=== PATIENT | female | born 1990 | race Caucasian/White ===

== ENCOUNTER 2018-01-27 15:21 | Observation (INO) ==
--- NOTE | 2018-01-27 15:39 | Emergency Department Note ---
Disposition Clinical Impression: Atypical chest pain, Elevated troponin, Pulmonary nodule, Hepatomegaly, Vascular disorder of pelvis Disposition: Admitted As Inpatient Condition: Good Time of Disposition: 19:26 General Adult HPI - General Chief complaint: ED Chest Pain Stated complaint: L-sided chest pain Time Seen by Provider: 01/27/18 15:34 Source: patient Limitations: no limitations Nursing Notes Reviewed: Yes Vital Signs Reviewed: Yes - History of Present Illness HPI Narrative: Female patient presents emergency ointment complaining of left-sided chest pain that began around 1:00 today. She states that she was at the gym exercising earlier today after she got home she started having some left-sided chest pain. She reports a history of irritable bowel syndrome. However she states her father has this as well. She does report 3 episodes of loose stools today that were nonbloody. She also reports that she had one episode of nausea that she somewhat contributes to the pain in the left side of her chest. The pain started and then she had an episode of emesis. She did describe that is nonbloody nonbilious. Patient denies any shortness of breath associated with the left sided chest pain or she does report the pain goes through her chest. She does take ibuprofen occasionally for which she believes this tendon pain in her leg. Patient is a avid runner and runs ultra marathons. She does report that she has had some calf pain recently but is attributed this to a tendinopathy. She is currently on control and states that she there is no issue be . She reports the pain is a left upper quadrant as well as left-sided chest pain. She denies any trauma. She denies any recent aches or pains to this area consistent with a muscle strain. Pain Scale: 6 - Related Data Allergies Allergy/AdvReac Type Severity Reaction Status Date / Time shellfish derived Allergy Rash Verified 01/27/18 15:34 All systems ED: reviewed and negative except as stated. Review of Systems: As Per HPI Constitutional: Denies: fever ENT ED: Reports: congestion (She reports constant congestion.) Cardiovascular: Reports: chest pain (Left chest wall radiates to her back.) Respiratory: Denies: cough, dyspnea, sputum production Gastrointestinal: Reports: abdominal pain (Left upper quadrant), nausea, vomiting, diarrhea Genitourinary: Reports: urgency. Denies: dysuria, frequency, hematuria, abnormal menses Musculoskeletal: Reports: other (Right calf pain.). Denies: back pain Past Medical History - Past Medical History Attestation: Yes The following information was validated with the patient. Source: patient Medical history: Reports: migraine, other (Irritable bowel like symptoms) Psychiatric history: Reports: no psych history - Social History Smoking Status: Never smoker Alcohol use: Reports: occasionally Drug use: Reports: none Physical Exam - General Limitations: no limitations General appearance: alert, in distress (Patient appears to be in pain.) - Head Head exam: atraumatic, normocephalic, normal inspection - Eye Eye exam: Present: normal appearance, PERRL, EOMI - ENT ENT exam: normal exam, normal oropharynx, mucous membranes moist - Neck Neck exam: Present: normal inspection, full ROM, trachea midline - Chest Chest inspection: Present: normal inspection, symmetric chest wall rise - Respiratory Respiratory exam: Present: normal lung sounds bilaterally. Absent: respiratory distress, accessory muscle use - Cardiovascular Cardiovascular exam: Present: regular rate, normal rhythm, normal heart sounds - Abdominal Exam Abdominal exam: Present: soft, tenderness (Mild to the left upper quadrant.). Absent: distention, guarding, rebound, rigidity, organomegaly, Joya's sign, Rovsing's sign, tenderness at McBurney's Point - Extremities Exam Extremities exam: Present: normal inspection, full ROM, normal capillary refill. Absent: tenderness, pedal edema - Back Exam Back exam: Present: normal inspection, full ROM. Absent: tenderness - Neurological Exam Neurological exam: Present: alert, oriented X3 - Psychiatric Psychiatric exam: Present: normal affect, normal mood - Skin Skin exam: Present: warm, dry, intact, normal color. Absent: rash Course Course Narrative: Patient report left-sided chest pain that radiates to her back. Patient does appear to be uncomfortable. She states she gets relief whenever she is standing up. The pain gets worse whenever she lays back. She denies any associated shortness of breath. No history of PE or DVT. Does have some pain at the palpation of her right calf however she does appear to have a Pitts's cyst in the popliteal fossa area. We did give a lab workup on patient as well as a chest x-ray. Patient's troponin came back elevated. She had recently ran [employer] however there was greater than 3 weeks ago. Do not expect that the troponin should still be elevated at this time. She had no signs of acute STEMI on her EKG. She did have some RSR prime in lead V1 and V2. We did get a CTA patient's chest to rule out dissection and PE. Her dimer was not elevated. On exam her abdomen is rather soft and nontender peritoneal. She does however complain of the left-sided chest pain and states it does radiate from her left upper quadrant to her left back. Patient is refusing any kind of pain medication that is agreeable to take some Zofran. - Reevaluation(s) Reevaluation #1: Patient CT shows a distended gallbladder and pericholecystic fluid. Patient's symptoms are consistent with acute cholecystitis. We will get a right upper quadrant ultrasound. She does also have a mildly elevated liver enzyme as well as bilirubin of 1.1. Time: 18:15 Reevaluation #2: Right upper quadrant ultrasound showed no pericholecystic fluid and only 2 tiny, stones. As well as some gall bladder sludge. We will admit patient to the hospital for elevated troponin and ongoing left-sided chest pain. She is still refusing pain medication at this time. She is agreeable to admission we did speak with cardiology. - Consultations Consultation #1: I spoke with Dedira. He is requesting we get a repeat EKG and trend the troponins. He is recommending an echo for tomorrow. He was to be notified if there are EKG changes or an elevation in the troponin. Time: 18:48 Consultation #2: Dr Reid accepted Pt in stable condition. Time: 19:17 Vital Signs Temperature 98.6 F 01/27/18 15:23 Pulse Rate 76 01/27/18 15:23 Respiratory Rate 20 01/27/18 15:23 Blood Pressure 140/82 01/27/18 15:23 O2 Sat by Pulse Oximetry 100 01/27/18 15:23 Temperature 98.6 F 01/27/18 15:23 Pulse Rate 72 01/27/18 18:04 Respiratory Rate 16 01/27/18 18:04 Blood Pressure 117/67 01/27/18 18:04 O2 Sat by Pulse Oximetry 100 01/27/18 18:04 Oxygen Delivery Oxygen Delivery Room Air Medical Decision Making - Lab Data Lab results reviewed: Yes I reviewed the patient's lab results. Result diagrams: 01/28/18 05:14 01/28/18 05:14 Lab Results 01/27/18 01/27/18 01/27/18 Range/Units 15:42 15:42 15:42 WBC 10.0 (4.3-11.1) K/mcL RBC 4.84 (3.82-4.97) M/mcL Hgb 13.9 (11.5-15.4) g/dL Hct 42.8 (35.3-44.9) % MCV 88.4 (83.0-100.0) fL MCH 28.7 (28.0-33.3) pg MCHC 32.5 (31.6-35.5) g/dL RDW 12.7 (11.5-14.5) % Plt Count 281 (140-400) K/mcL MPV 10.1 (9.4-12.4) fL Immature Gran % 0.3 (0-4) % Seg Neutrophils % 78.9 % Lymphocytes % 13.7 % Monocytes % 6.1 % Eosinophils % 0.4 % Basophils % 0.6 % Neutrophils # 7.9 (1.6-8.9) K/mcL Lymphocytes # 1.4 (0.6-4.6) K/mcL Monocytes # 0.6 (0.0-1.3) K/mcL Eosinophils # 0.0 (0.0-0.6) K/mcL Basophils # 0.1 (0.0-0.2) K/mcL ESR 15 (0-15) mm/hr D-Dimer (0-500) ng/mLFEU Sodium 138 (136-145) mEq/L Potassium 3.9 (3.5-5.1) mEq/L Chloride 103 (98-107) mEq/L Carbon Dioxide 28 (23-29) mEq/L BUN 10 (6-20) mg/dL Creatinine 0.64 (0.60-1.20) mg/dL Est GFR ( Amer) > 60 (> 60) Est GFR (Non-Af Amer) > 60 (> 60) BUN/Creatinine Ratio 16 (6-26) Glucose 102 (70-105) mg/dL Calculated Osmolality 285 (280-300) Calcium 9.2 (8.6-10.3) mg/dL Total Bilirubin 1.1 H (0.3-1.0) mg/dL AST 57 H (13-39) Units/L ALT 35 (7-52) Units/L Alkaline Phosphatase 54 (34-104) Units/L Troponin I 0.07 H* (< 0.04) ng/mL C-Reactive Protein (Less than 10) mg/L Serum Total Protein 7.3 (6.4-8.9) g/dL Albumin 4.2 (3.5-5.7) g/dL Globulin 3.1 (2.4-3.5) g/dL Albumin/Globulin Ratio 1.4 (1.1-2.2) Lipase 32 (11-82) Units/L Urine Color (Yellow) Urine Clarity (Clear) Urine pH (5.0-8.0) pH Units Ur Specific [place] (1.010-1.025) Urine Protein (Neg-Trace) mg/dL Urine Glucose (UA) (Normal) mg/dL Urine Ketones (Negative) mg/dL Urine Blood (Negative) Urine Nitrite (Negative) Urine Bilirubin (Negative) Urine Urobilinogen (Normal) mg/dL Ur Leukocyte Esterase (Negative) Urine Microscopic RBC (0-3) per hpf Urine Microscopic WBC (0-3) per hpf Ur Squamous Epith Cells (None-Few) per lpf Amorphous Sediment (Few) Urine Bacteria (None-Few) per hpf Hyaline Casts (None-Few) per lpf Ur Culture Indicated? (NO) Urine Test (Negative) 01/27/18 01/27/18 01/27/18 Range/Units 15:42 15:42 15:45 WBC (4.3-11.1) K/mcL RBC (3.82-4.97) M/mcL Hgb (11.5-15.4) g/dL Hct (35.3-44.9) % MCV (83.0-100.0) fL MCH (28.0-33.3) pg MCHC (31.6-35.5) g/dL RDW (11.5-14.5) % Plt Count (140-400) K/mcL MPV (9.4-12.4) fL Immature Gran % (0-4) % Seg Neutrophils % % Lymphocytes % % Monocytes % % Eosinophils % % Basophils % % Neutrophils # (1.6-8.9) K/mcL Lymphocytes # (0.6-4.6) K/mcL Monocytes # (0.0-1.3) K/mcL Eosinophils # (0.0-0.6) K/mcL Basophils # (0.0-0.2) K/mcL ESR (0-15) mm/hr D-Dimer 394 (0-500) ng/mLFEU Sodium (136-145) mEq/L Potassium (3.5-5.1) mEq/L Chloride (98-107) mEq/L Carbon Dioxide (23-29) mEq/L BUN (6-20) mg/dL Creatinine (0.60-1.20) mg/dL Est GFR ( Amer) (> 60) Est GFR (Non-Af Amer) (> 60) BUN/Creatinine Ratio (6-26) Glucose (70-105) mg/dL Calculated Osmolality (280-300) Calcium (8.6-10.3) mg/dL Total Bilirubin (0.3-1.0) mg/dL AST (13-39) Units/L ALT (7-52) Units/L Alkaline Phosphatase (34-104) Units/L Troponin I (< 0.04) ng/mL C-Reactive Protein 6 (Less than 10) mg/L Serum Total Protein (6.4-8.9) g/dL Albumin (3.5-5.7) g/dL Globulin (2.4-3.5) g/dL Albumin/Globulin Ratio (1.1-2.2) Lipase (11-82) Units/L Urine Color Dark Yellow (Yellow) Urine Clarity Cloudy A (Clear) Urine pH 8.0 (5.0-8.0) pH Units Ur Specific [place] 1.020 (1.010-1.025) Urine Protein 30 H (Neg-Trace) mg/dL Urine Glucose (UA) Normal (Normal) mg/dL Urine Ketones Trace H (Negative) mg/dL Urine Blood Negative (Negative) Urine Nitrite Negative (Negative) Urine Bilirubin Small H (Negative) Urine Urobilinogen Normal (Normal) mg/dL Ur Leukocyte Esterase Trace H (Negative) Urine Microscopic RBC 0-3 (0-3) per hpf Urine Microscopic WBC 0-3 (0-3) per hpf Ur Squamous Epith Cells Many H (None-Few) per lpf Amorphous Sediment Few (Few) Urine Bacteria None Seen (None-Few) per hpf Hyaline Casts None Seen (None-Few) per lpf Ur Culture Indicated? NO. A (NO) Urine Test (Negative) 01/27/18 Range/Units 15:48 WBC (4.3-11.1) K/mcL RBC (3.82-4.97) M/mcL Hgb (11.5-15.4) g/dL Hct (35.3-44.9) % MCV (83.0-100.0) fL MCH (28.0-33.3) pg MCHC (31.6-35.5) g/dL RDW (11.5-14.5) % Plt Count (140-400) K/mcL MPV (9.4-12.4) fL Immature Gran % (0-4) % Seg Neutrophils % % Lymphocytes % % Monocytes % % Eosinophils % % Basophils % % Neutrophils # (1.6-8.9) K/mcL Lymphocytes # (0.6-4.6) K/mcL Monocytes # (0.0-1.3) K/mcL Eosinophils # (0.0-0.6) K/mcL Basophils # (0.0-0.2) K/mcL ESR (0-15) mm/hr D-Dimer (0-500) ng/mLFEU Sodium (136-145) mEq/L Potassium (3.5-5.1) mEq/L Chloride (98-107) mEq/L Carbon Dioxide (23-29) mEq/L BUN (6-20) mg/dL Creatinine (0.60-1.20) mg/dL Est GFR ( Amer) (> 60) Est GFR (Non-Af Amer) (> 60) BUN/Creatinine Ratio (6-26) Glucose (70-105) mg/dL Calculated Osmolality (280-300) Calcium (8.6-10.3) mg/dL Total Bilirubin (0.3-1.0) mg/dL AST (13-39) Units/L ALT (7-52) Units/L Alkaline Phosphatase (34-104) Units/L Troponin I (< 0.04) ng/mL C-Reactive Protein (Less than 10) mg/L Serum Total Protein (6.4-8.9) g/dL Albumin (3.5-5.7) g/dL Globulin (2.4-3.5) g/dL Albumin/Globulin Ratio (1.1-2.2) Lipase (11-82) Units/L Urine Color (Yellow) Urine Clarity (Clear) Urine pH (5.0-8.0) pH Units Ur Specific [place] (1.010-1.025) Urine Protein (Neg-Trace) mg/dL Urine Glucose (UA) (Normal) mg/dL Urine Ketones (Negative) mg/dL Urine Blood (Negative) Urine Nitrite (Negative) Urine Bilirubin (Negative) Urine Urobilinogen (Normal) mg/dL Ur Leukocyte Esterase (Negative) Urine Microscopic RBC (0-3) per hpf Urine Microscopic WBC (0-3) per hpf Ur Squamous Epith Cells (None-Few) per lpf Amorphous Sediment (Few) Urine Bacteria (None-Few) per hpf Hyaline Casts (None-Few) per lpf Ur Culture Indicated? (NO) Urine Test Negative (Negative) - Radiology Data Radiology results reviewed: Yes I reviewed the patient's radiology results. Chest X-Ray 01/27/18 15:37 IMPRESSION: No acute cardiopulmonary process. D/ / 01/27/2018 16:45:56 Juni Simmons MD / [facility] Interpreting Provider: Juni Simmons MD Abdomen/Pelvis CTA 01/27/18 16:31 IMPRESSION: No evidence of thoracic or abdominal aortic dissection or aneurysm. Although not well evaluated, no central pulmonary embolism is detected. Hepatomegaly, with a mottled appearance of the hepatic parenchyma, possibly secondary to contrast phase, but hepatic congestion would also be considered. Correlate with clinical evidence of hepatocellular disease. Gallbladder distention with pericholecystic edema. That is a nonspecific finding, but correlate with clinical evidence of acute cholecystitis. Small amount of free pelvic fluid, presumably physiologic. Prominent left parauterine venous plexus. Correlate with any clinical evidence of pelvic congestion syndrome. Indeterminate, circumscribed low-density lesion within the right costophrenic angle, measuring 1.9 cm. Given the patient's age, and assuming there is no history of neoplasm, this is probably a benign finding such as a hamartoma, or possibly a loculated mildly complex pleural fluid collection. Consider follow-up in 1 year to ensure stability. D/ / Shon Coffey MD / Shon Coffey MD Interpreting Provider: Shon Coffey MD Chest CTA 01/27/18 16:31 IMPRESSION: No evidence of thoracic or abdominal aortic dissection or aneurysm. Although not well evaluated, no central pulmonary embolism is detected. Hepatomegaly, with a mottled appearance of the hepatic parenchyma, possibly secondary to contrast phase, but hepatic congestion would also be considered. Correlate with clinical evidence of hepatocellular disease. Gallbladder distention with pericholecystic edema. That is a nonspecific finding, but correlate with clinical evidence of acute cholecystitis. Small amount of free pelvic fluid, presumably physiologic. Prominent left parauterine venous plexus. Correlate with any clinical evidence of pelvic congestion syndrome. Indeterminate, circumscribed low-density lesion within the right costophrenic angle, measuring 1.9 cm. Given the patient's age, and assuming there is no history of neoplasm, this is probably a benign finding such as a hamartoma, or possibly a loculated mildly complex pleural fluid collection. Consider follow-up in 1 year to ensure stability. D/ / Shon Coffey MD / Shon Coffey MD Interpreting Provider: Shon Coffey MD Gallbladder Ultrasound 01/27/18 17:53 IMPRESSION: Sludge versus tiny stones within the lumen of the gallbladder. No evidence of acute cholecystitis. D/ / Fernie Lunsford MD / Fernie Lunsford MD Interpreting Provider: Fernie Lunsford MD - EKG Data EKG #1 EKG attestation: Yes I reviewed and interpreted this EKG. EKG results narrative: Normal sinus rhythm at a rate of 77. LA interval is 127. QRS duration is 99. QT is 36. QTC is 437. No signs of acute ischemia. Patient does have RSR prime in leads V1. We have no old EKG to compare this to. She does have good R-wave progression. Attestation Statement - Attestation Attestation: Resident Attestation: I examined this patient and my medical decision making was reviewed with the Resident Physician. I agree with the documented findings, disposition and treatment plan as described except to the extent set forth below . We independently had [id number] contact with the patient. Patient seen with resident physician Dr. Dina Cruz. Please see resident note for further details and disposition. Patient presenting for evaluation of chest pain. Started earlier today. Patient states she was sitting on the couch. Patient developed left upper quadrant abdominal pain with radiation into the chest that started radiating to the left shoulder. Active runner and otherwise in good health. Patient will be further evaluated with EKG, chest x-ray, blood work. Elevated troponin, negative d-dimer. Patient refusing pain medications at this time. Patient continues to appear uncomfortable. Due to her atypical p resentation and negative d-dimer she will undergo further evaluation with CTA of the chest abdomen and pelvis. CTA does not show evidence of dissection however she does have significant hepatomegaly with a distended gallbladder. Ultrasound ordered. Patient will be admitted for elevated troponin and further evaluation by cardiology.
[2018-01-27] MEDS ORDERED: Ondansetron 4 MG/2 ML VIAL IVP ONE (15:42)
[2018-01-27 15:57] LABS: Basophils # 0.1 K/mcL (0.0-0.2); Basophils % 0.6 %; Eosinophils % 0.4 %; Hematocrit 42.8 % (35.3-44.9); Hemoglobin 13.9 g/dL (11.5-15.4); Immature Granulocytes % 0.3 % (0-4); Lymphocytes # 1.4 K/mcL (0.6-4.6); Lymphocytes % 13.7 %; Mean Corpuscular HGB Conc 32.5 g/dL (31.6-35.5); Mean Corpuscular Hemoglobin 28.7 pg (28.0-33.3); Mean Corpuscular Volume 88.4 fL (83.0-100.0); Mean Platelet Volume 10.1 fL (9.4-12.4); Monocytes # 0.6 K/mcL (0.0-1.3); Monocytes % 6.1 %; Neutrophils # 7.9 K/mcL (1.6-8.9); Platelet Count 281 K/mcL (140-400); Red Blood Count 4.84 M/mcL (3.82-4.97); Red Cell Distribution Width 12.7 % (11.5-14.5); Segmented Neutrophils % 78.9 %
[2018-01-27 16:04] LABS: Bilirubin,Urine Small (Negative); Blood,Urine Negative (Negative); Clarity,Urine Cloudy (Clear); Color,Urine Dark Yellow (Yellow); Glucose,Urine (UA) Normal (Normal); Ketones,Urine Trace mg/dL (Negative); Leukocyte Esterase,Urine Trace (Negative); Nitrite,Urine Negative (Negative); Protein,Urine 30 mg/dL (Neg-Trace); Urobilinogen,Urine Normal (Normal)
[2018-01-27 16:06] LABS: Bacteria,Urine None Seen per hpf (None-Few); Hyaline Casts,Urine None Seen per lpf (None-Few); Squamous Epithelial Cell,Urine Many per lpf (None-Few); WBC,Urine 0-3 per hpf (0-3)
[2018-01-27 16:19] LABS: Alanine Aminotransferase 35 Units/L (7-52); Albumin 4.2 g/dL (3.5-5.7); Albumin/Globulin Ratio 1.4 (1.1-2.2); Alkaline Phosphatase 54 Units/L (34-104); Aspartate Amino Transferase 57 Units/L (13-39); BUN/Creatinine Ratio 16 (6-26); Bilirubin,Total 1.1 mg/dL (0.3-1.0); Blood Urea Nitrogen 10 mg/dL (6-20); Calcium 9.2 mg/dL (8.6-10.3); Carbon Dioxide 28 mEq/L (23-29); Chloride 103 mEq/L (98-107); Globulin 3.1 g/dL (2.4-3.5); Glucose 102 mg/dL (70-105); Lipase 32 Units/L (11-82); Osmolality,Calculated 285 (280-300); Potassium 3.9 mEq/L (3.5-5.1); Sodium 138 mEq/L (136-145); Total Protein 7.3 g/dL (6.4-8.9); eGFR For Non-African Americans > 60 (> 60)
[2018-01-27 16:22] LABS: Amorphous Sediment,Urine Few (Few); RBC,Urine 0-3 per hpf (0-3)
[2018-01-27 16:24] LABS: Troponin I 0.07 ng/mL (< 0.04)
[2018-01-27] MEDS ORDERED: Isovue-370 500 ML INFUS..BTL IV ONE (16:31)
[2018-01-27] MEDS ORDERED: Aspirin 325 MG TABLET PO ONE (18:49)
[2018-01-27] MEDS ORDERED: Naloxone 0.4 MG/ML INJ IVP PRN (22:53)
--- NOTE | 2018-01-27 23:28 | Internal Med History&Physical ---
Addendum entered and electronically signed by Layton Fernandez MD 01/28/18 06:10: I saw and evaluated the patient. I reviewed the nurse practitioner's note, performed my own physical examination and agree with findings and plan as documented in the nurse practitioners note. Patient seen and examined on 01/28/18. Pain has improved, patient has been able to sleep wh ile in the hospital. Declines pain medication at this time. Will follow up with echo in the AM with Cardiology consult. Original Note: Date of Encounter: 01/28/18 Time of Encounter: 22:00 Internal Medicine - H&P: HPI Chief complaint: Abdominal/Chest Pain Admitted From: Home Plans for Post Hospital Care: Home History of present illness: Ms. Merritt is a 27 year old female with past medical history significant for IBS and migraine who presents for complaints of left sided sharp squeezing chest pa in with left upper quadrant abdominal pain radiating to her left neck and through her left chest to the left side of her back after coming home from exercising today. Chest pain and abdominal pain initiated together. Pain waxes and wains and at worst is 10/10 and improves to 4/10. Pain was associated with one episode of vomiting, 3 episodes of loose stool, and diaphoresis. ER EKG reported as Sinus Rhythm with RSR in lead one but no previous EKG on file for comparison. Denies shortness of breath, fever, sick contacts, urinary changes, or any trauma. Took Naproxen at home which she thinks has improved her pain. Denies any other alleviating or exacerbating factors. Is avid runner, recently completing 30 mile marathon 01/10/18. Has had right calf pain since last marathon which is not new and she attributes to known tendinopathy. 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 Has no known history of cardiac or liver issues. Past Med Surg Social Fam HX - Past Medical History Medical history: migraine, other Additional medical history: IBS Psychiatric history: no psych history - Social History Smoking Status: Never smoker Smokeless Tobacco Status: No Alcohol use: rarely Drug use: none Internal Medicine - H&P: Meds Multivitamin [Multivitamins] 1 tab PO DAILY 01/27/18 [History] Norethindrone AC-Eth Estradiol [Junel 1.5 mg-30 Mcg Tablet] 1 tab PO DAILY 01/27/18 [History] Allergy/AdvReac Type Severity Reaction Status Date / Time shellfish derived Allergy Rash Verified 01/27/18 15:34 All Systems PM: A 10-system review of systems was performed and is negative for pertinent findings except as documented above in the HPI. - Constitutional Vitals: Temp Pulse Resp BP Pulse Ox 98.2 F 68 17 120/74 100 01/27/18 22:07 01/27/18 22:07 01/27/18 22:07 01/27/18 22:07 01/27/18 22:07 Exam: General: Alert and oriented. Skin:Normal color, no rash, no lesions. HEENT:Pupils equal, round and reactive. Cardiovascular:Normal S1 & S2, no rubs, murmurs or gallops. No JVD. Pulse regular. Lungs:Normal breath sounds, no wheezes or crackles. Abdomen:Soft, no rigidity. Tenderness noted to left upper quadrant. Extremities:No deformity, no edema or tenderness, no joint swelling or clubbing. Neurological:Normal cognition and motor skills. Pulses:Carotid and radial pulses normal +2. Rest of the physical exam is non contributory. Internal Med - H&P Results - Labs CBC & Chem 7: 01/27/18 15:42 01/27/18 15:42 Labs: Short CBC 01/27/18 Range/Units 15:42 WBC 10.0 (4.3-11.1) K/mcL Hgb 13.9 (11.5-15.4) g/dL Hct 42.8 (35.3-44.9) % Plt Count 281 (140-400) K/mcL Neutrophils # 7.9 (1.6-8.9) K/mcL BMP 01/27/18 15:42 Sodium 138 Potassium 3.9 Chloride 103 Carbon Dioxide 28 BUN 10 Creatinine 0.64 Glucose 102 Calcium 9.2 Cardiac Enzymes 01/27/18 Range/Units 15:42 Troponin I 0.07 H* (< 0.04) ng/mL Liver Function 01/27/18 Range/Units 15:42 Total Bilirubin 1.1 H (0.3-1.0) mg/dL AST 57 H (13-39) Units/L ALT 35 (7-52) Units/L Alkaline Phosphatase 54 (34-104) Units/L Albumin 4.2 (3.5-5.7) g/dL Urine 01/27/18 Range/Units 15:45 Urine Color Dark Yellow (Yellow) Urine Clarity Cloudy A (Clear) Urine pH 8.0 (5.0-8.0) pH Units Ur Specific [place] 1.020 (1.010-1.025) Urine Protein 30 H (Neg-Trace) mg/dL Urine Glucose (UA) Normal (Normal) mg/dL - Impressions ITS Impressions Chest X-Ray 01/27/18 15:37 IMPRESSION: No acute cardiopulmonary process. D/ / 01/27/2018 16:45:56 Juni Simmons MD / laurita Interpreting Provider: Juni Simmons MD Abdomen/Pelvis CTA 01/27/18 16:31 IMPRESSION: No evidence of thoracic or abdominal aortic dissection or aneurysm. Although not well evaluated, no central pulmonary embolism is detected. Hepatomegaly, with a mottled appearance of the hepatic parenchyma, possibly secondary to contrast phase, but hepatic congestion would also be considered. Correlate with clinical evidence of hepatocellular disease. Gallbladder distention with pericholecystic edema. That is a nonspecific finding, but correlate with clinical evidence of acute cholecystitis. Small amount of free pelvic fluid, presumably physiologic. Prominent left parauterine venous plexus. Correlate with any clinical evidence of pelvic congestion syndrome. Indeterminate, circumscribed low-density lesion within the right costophrenic angle, measuring 1.9 cm. Given the patient's age, and assuming there is no history of neoplasm, this is probably a benign finding such as a hamartoma, or possibly a loculated mildly complex pleural fluid collection. Consider follow-up in 1 year to ensure stability. D/ / Shon Coffey MD / Shon Coffey MD Interpreting Provider: Shon Coffey MD Chest CTA 01/27/18 16:31 IMPRESSION: No evidence of thoracic or abdominal aortic dissection or aneurysm. Although not well evaluated, no central pulmonary embolism is detected. Hepatomegaly, with a mottled appearance of the hepatic parenchyma, possibly secondary to contrast phase, but hepatic congestion would also be considered. Correlate with clinical evidence of hepatocellular disease. Gallbladder distention with pericholecystic edema. That is a nonspecific finding, but correlate with clinical evidence of acute cholecystitis. Small amount of free pelvic fluid, presumably physiologic. Prominent left parauterine venous plexus. Correlate with any clinical evidence of pelvic congestion syndrome. Indeterminate, circumscribed low-density lesion within the right costophrenic angle, measuring 1.9 cm. Given the patient's age, and assuming there is no history of neoplasm, this is probably a benign finding such as a hamartoma, or possibly a loculated mildly complex pleural fluid collection. Consider follow-up in 1 year to ensure stability. D/ / Shon Coffey MD / Shon Coffey MD Interpreting Provider: Shon Coffey MD Gallbladder Ultrasound 01/27/18 17:53 IMPRESSION: Sludge versus tiny stones within the lumen of the gallbladder. No evidence of acute cholecystitis. D/ / Fernie Lunsford MD / Fernie Lunsford MD Interpreting Provider: Fernie Lunsford MD - Assessment and plan (1) Chest pain Current Visit: Yes Status: Acute Assessment and plan: Cardiology consulted by ER. Initial troponin elevated 0.07, serial troponins ordered per cardiology recommendation. 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 Echocardiogram ordered per cardiology recommendation. NPO. Qualifiers: Chest pain type: unspecified Qualified Code(s): R07.9 - Chest pain, unspecified (2) Elevated troponin Current Visit: Yes Status: Acute Assessment and plan: Plan as above, cardiology to be notified of further increase in troponin. (3) Abdominal pain Current Visit: Yes Status: Acute Assessment and plan: GI consult ordered, will need called in a.m. Urine drug screen. Repeat labs in a.m. Qualifiers: Abdominal location: left upper quadrant Qualified Code(s): R10.12 - Left upper quadrant pain (4) Hepatomegaly Current Visit: Yes Status: Acute Assessment and plan: Plan as stated above. (5) Pulmonary lesion Current Visit: Yes Status: Acute Assessment and plan: Incidental finding on Chest CT, one year outpatient follow up recommended per radiology. (6) Free fluid in pelvis Current Visit: Yes Status: Acute Assessment and plan: Incidental finding on CT of Abdomen/Pelvis, currently without pelvic pain, continue to monitor for pelvic pain or new signs/symptoms. - Time Spent With Patient Total time spent is greater than 50% in coordination of care (as documented) at patient's floor/unit and/or counseling patient:
[2018-01-28 05:36] LABS: Basophils % 0.5 %; Eosinophils # 0.1 K/mcL (0.0-0.6); Eosinophils % 1.7 %; Hemoglobin 12.5 g/dL (11.5-15.4); Immature Granulocytes % 0.2 % (0-4); Lymphocytes % 29.9 %; Mean Corpuscular HGB Conc 32.9 g/dL (31.6-35.5); Mean Corpuscular Hemoglobin 28.4 pg (28.0-33.3); Mean Corpuscular Volume 86.4 fL (83.0-100.0); Monocytes # 0.5 K/mcL (0.0-1.3); Monocytes % 7.6 %; Platelet Count 263 K/mcL (140-400); Red Cell Distribution Width 12.9 % (11.5-14.5); Segmented Neutrophils % 60.1 %
[2018-01-28] MEDS: *HR* Heparin 5,000 UNIT/ML VIAL SQ SCH ×2 (05:53→17:45)
[2018-01-28 05:58] LABS: Alanine Aminotransferase 84 Units/L (7-52); Albumin 3.7 g/dL (3.5-5.7); Albumin/Globulin Ratio 1.4 (1.1-2.2); Alkaline Phosphatase 69 Units/L (34-104); Aspartate Amino Transferase 104 Units/L (13-39); BUN/Creatinine Ratio 11 (6-26); Bilirubin,Direct 0.7 mg/dL (0.0-0.2); Bilirubin,Indirect 1.4 mg/dL (0.0-1.2); Bilirubin,Total 2.1 mg/dL (0.3-1.0); Blood Urea Nitrogen 7 mg/dL (6-20); Calcium 8.6 mg/dL (8.6-10.3); Carbon Dioxide 26 mEq/L (23-29); Chloride 107 mEq/L (98-107); Globulin 2.7 g/dL (2.4-3.5); Glucose 91 mg/dL (70-105); Osmolality,Calculated 286 (280-300); Potassium 3.7 mEq/L (3.5-5.1); Sodium 139 mEq/L (136-145); Total Protein 6.4 g/dL (6.4-8.9); eGFR For Non-African Americans > 60 (> 60)
[2018-01-28] MEDS: Multivit/Ca/Min/Fe/FA 1 TAB TABLET PO SCH (08:18)
[2018-01-28] MEDS: JUNEL PO SCH (08:21)
--- NOTE | 2018-01-28 08:25 | Cardiology Consult Note ---
Addendum entered and electronically signed by Jesus Hoffman MD 01/28/18 15:30: I examined this patient and my medical decision-making was reviewed with the Resident Physician. I agree with the documented findings, disposition and treatment plan as described except to the extent set forth below. A/P: Atypical chest pain with minimally elevated troponin Active GI disease - GB/liver Elevated troponin secondary to demand ischemia. Presentation not cw ACS, will sign off. Thank you for the consult, Jesus Hoffman MD [facility] Original Note: Date of Encounter: 01/28/18 Time of Encounter: 10:01 Assessment and Plan (1) Atypical chest pain Current Visit: Yes Status: Acute patients pain started at LUQ and staed to left chest and left neck ECG negative for ischemic changes troponin: 0.07,0.05,0.03 no family hx of cardiac disease currently has dull RUQ pain but denies chest pain test negative CTA chest/abdomen/pelvis shows hepatomegaly, gall baldder distension, gallbladder wall thickening and pericholecystic edema, CBD is 6.5 plan: unlikely this is ACS or pain 2nd to cardiac etiology. Patient may have acute abdominal process at this point. GI is consulted. (2) Elevated troponin Current Visit: Yes Status: Acute Discussion w patient/family: The assessment and plan as outlined above was discussed with the patient and/or family members who expressed understanding and agreement. All questions were answered. Thank you for involving us in the care of your patient. Please call w ith any questions. History of Present Illness Consult date: 01/28/18 Consult reason: elevated troponin Chief complaint: LUQ abdominal pain History of present illness: Ms. Merritt is a 27 year old female presented with cc of LUQ pain that started at 1PM while patient was watching TV. Cardiology was consulted for elevated troponin. Pain at baseline was dull/throbbing and intermittently intensified to a sharp pain 7/10. Patient had nasuea associated with pain and one bout of vomiting. Ananya radiates to her left neck and thorugh her left chest to the left side. She reported eating turkey 1.5 hours before pain started. She denies chest pain, palpitations, diaphoresis, sob, cough, blurry vision, LE pain, changes in bowel or bladder function. Patient report she is physically active running ultra marathons and has never had chest pain or abdominal pain before. She reports weight loss in the past 2nd to her physical activity. SHe denies recent travel, sick contacts. She denies family history of cardiac disease, genetic disease. Denies recent travel. She does not smoke tobacco, illicit drug use, and does not take any supplements. 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 Patients ECG was NSR without ST elevation or depression. Troponin was 0.07,0.05,0,03 respectively. Past Med Surg Social Fam HX - Past Medical History Medical history: migraine, other Additional medical history: IBS Psychiatric history: no psych history - Social History Smoking Status: Never smoker Smokeless Tobacco Status: No Alcohol use: rarely Drug use: none Medications and Allergies Multivitamin [Multivitamins] 1 tab PO DAILY 01/27/18 [History] Norethindrone AC-Eth Estradiol [Junel 1.5 mg-30 Mcg Tablet] 1 tab PO DAILY 01/27/18 [History] Allergy/AdvReac Type Severity Reaction Status Date / Time shellfish derived Allergy Rash Verified 01/27/18 15:34 All Systems Review: The remainder of the systems were reviewed and are negative Review of Systems: Constitutional: Denies fever, chills HEENT: Denies headache, trauma, blurry vision, eye discharge, ear pain, ear discharge neck pain, sore throat, rhinorrhea Heart: Reports chest pain, denies palpitations, LE edema Lungs: Denies shortness of breath cough Abdomen: reports abdominal pain nausea vomiting Denies diarrhea MSK: Denies back pain, falls, joint pain Kidney: Denies dysuria, hematuria Skin: Denies rash, ulcers Neuro: Denies numbness and tingling Psych: denies anxiety, depression Physical Examination Vital Signs, Last 4 Hours Temp Pulse Resp BP Pulse Ox 01/28/18 07:36 97.9 F 60 17 112/67 98 General: Conversant, No Apparent Distress HEENT: Atraumatic, Normocephaly, Mucus Membranes Moist Neck: No JVD, Normal carotid pulses Cardiac: Reg Rate and Rhythm, Normal S1 and S2, No Murmur Lungs: Normal Breath Sounds, No Wheeze, Rales, Rhonchi Neuro: Alert and responsive, No focal deficits noted Abdomen: Soft, Non-Tender Skin: No rashes noted on visualized skin Musculoskeletal: No Chest Wall Tenderness Extremities: No Clubbing, No Cyanosis, No Edema, Normal Pulses Results 01/28/18 05:14 01/28/18 05:14 Lab Results 01/27/18 01/27/18 01/27/18 15:42 15:42 15:42 WBC 10.0 Hgb 13.9 Hct 42.8 Plt Count 281 D-Dimer 394 Sodium 138 Potassium 3.9 Chloride 103 Carbon Dioxide 28 BUN 10 Creatinine 0.64 Glucose 102 Calcium 9.2 Total Bilirubin 1.1 H AST 57 H ALT 35 Alkaline Phosphatase 54 Troponin I 0.07 H* Lipase 32 01/27/18 01/28/18 01/28/18 23:45 05:14 05:14 WBC 6.6 Hgb 12.5 Hct 38.0 Plt Count 263 D-Dimer Sodium 139 Potassium 3.7 Chloride 107 Carbon Dioxide 26 BUN 7 Creatinine 0.61 Glucose 91 Calcium 8.6 Total Bilirubin 2.1 H AST 104 H ALT 84 H Alkaline Phosphatase 69 Troponin I 0.05 H* Lipase 01/28/18 05:14 WBC Hgb Hct Plt Count D-Dimer Sodium Potassium Chloride Carbon Dioxide BUN Creatinine Glucose Calcium Total Bilirubin AST ALT Alkaline Phosphatase Troponin I 0.03 Lipase Consult Discharge Plan - Plan Referrals: NONE,PCP [Primary Care Provider] -
[2018-01-28 08:59] LABS: Amphetamine Screen,Urine Negative ng/mL (Cutoff=1000); Barbiturate Screen,Urine Negative ng/mL (Cutoff=200); Benzodiazepines Screen,Urine Negative ng/mL (Cutoff=200); Cannabinoid Screen,Urine Negative ng/mL (Cutoff = 50); Cocaine Screen,Urine Negative ng/mL (Cutoff= 300); Opiate Screen,Urine Negative ng/mL (Cutoff=300); Phencyclidine Screen,Urine Negative ng/mL (Cutoff=25)
--- NOTE | 2018-01-28 12:17 | Gastroenterology Consult Note ---
<Tevin Dee - Last Filed: 01/28/18 12:15> Date of Encounter: 01/28/18 Time of Encounter: 10:05 - Assessment and plan (1) Abdominal pain Current Visit: Yes Status: Acute Assessment and plan: Patient denies reflux symptoms. No indication for EGD at this time. Qualifiers: Abdominal location: left upper quadrant Qualified Code(s): R10.12 - Left upper quadrant pain (2) Hepatomegaly Current Visit: Yes Status: Acute Assessment and plan: CTA patent portal vein, no thrombosis noted. RUQ US with sludge vs stones in gallbladder, no cholecystitis noted. Check hepatitis profile. Will discuss with Dr. Reddy. (3) Elevated LFTs Current Visit: Yes Status: Acute Assessment and plan: On admission TB 1.1, AST 57, ALT 35. Today TB 2.1 with indirect bili 1.4, AST 104, ALT 84. RUQ US showed sludge vs stones in gallbladder, no cholecystitis. Check hepatitis profile. Continue to monitor hepatic panel daily. (4) Elevated troponin Current Visit: Yes Status: Acute Assessment and plan: Management per Cardiology. - Time Spent With Patient Total time spent is greater than 50% in coordination of care (as documented) at patient's floor/unit and/or counseling patient: GI History of Present Illness - Data of Consult Patient: new to practice Consult date: 01/28/18 Requesting Physician: Alejandro Liu - Consult Narrative Reason for consult: Hepatomegaly, elevated LFTs History of present illness: Ms. Merritt is a 27 year old female with PMHx of IBS and migraine who presents for complaints of left sided chest pain with left upper quadrant abdominal pain radiating to her back that started after coming home from exercising. She denies shortness of breath or any history of PE or DVT. Troponin was found to be slightly elevated and Cardiology was consulted. Patient denies heartburn, indigestion, or reflux symptoms. CTA abdomen and pelvis showed patent celiac artery and its branches, superior and inferior mesenteric arteries patent, iliac systems patent, portal vein is grossly patent. Hepatomegaly was noted. On admission TB 1.1, AST 57, ALT 35. Today TB 2.1 with indirect bili 1.4, AST 104, ALT 84. Procedures: None NSAIDs: None Anticoagulation: None Past Med Surg Social Fam HX - Past Medical History Medical history: migraine, other Additional medical history: IBS Psychiatric history: no psych history - Social History Smoking Status: Never smoker Smokeless Tobacco Status: No Alcohol use: rarely Drug use: none - Gastrointestinal Gastrointestinal: Present: as per HPI - Constitutional Constitutional: as per HPI - EENT Eyes: as per HPI Ears: Present: as per HPI Nose, mouth and throat: Present: as per HPI - Cardiovascular Cardiovascular ROS: Present: as per HPI - Respiratory Respiratory IM: Present: as per HPI - Genitourinary Genitourinary: Absent: change in color, Urinary frequency - Neurological ROS Neurological GI: Present: as per HPI - Hematologic/Lymphatic Hematologic/Lymphatic pediatric: Present: as per HPI - Musculoskeletal Musculoskeletal ROS GI: Present: as per HPI - Integumentary Integumentary GI: Present: as per HPI - Psychiatric ROS Psychiatric GI: Present: as per HPI - Endocrine Endocrine IM: Present: as per HPI - Constitutional Vitals: Temp Pulse Resp BP Pulse Ox 98.1 F 60 18 115/75 98 01/28/18 11:35 01/28/18 11:35 01/28/18 11:35 01/28/18 11:35 01/28/18 11:35 General appearance: Present: cooperative, A&O X 3, no acute distress, answers questions appropriately - Head Head exam: Present: atraumatic, normocephalic - Eye Eye exam: Present: normal appearance, sclera anicteric - ENT ENT exam: Present: mucous membranes dry - Neck Neck exam general surgery: Present: normal inspection, trachea midline - Respiratory Respiratory exam: Present: CTAB. Absent: rales, rhonchi, wheezes - Cardiovascular Cardiovascular exam: Present: RRR, +S1, +S2 - GI/Abdominal GI/Abdominal exam: Present: soft, tenderness (epigastric, LUQ), no peritoneal signs. Absent: distended, firm, guarding - Rectal Rectal exam: Present: deferred - Extremities Exam Extremities exam: Present: warm - Neurological Exam Neurological exam: Present: no focal deficits - Psychiatric Psychiatric exam: Present: normal affect, normal mood - Skin Skin exam: Present: dry, intact, normal color, warm Results - Labs CBC & Chem 7: 01/28/18 05:14 01/28/18 05:14 Labs: Last Result ESR 15 mm/hr (0-15) 01/27/18 15:42 Calcium 8.6 mg/dL (8.6-10.3) 01/28/18 05:14 Troponin I 0.03 ng/mL (< 0.04) 01/28/18 05:14 C-Reactive Protein 6 mg/L (Less than 10) 01/27/18 15:42 Urine Opiates Screen Negative ng/mL (Tnetkg=156) 01/27/18 15:45 Entire Visit Hgb 12.5 g/dL (11.5-15.4) 01/28/18 05:14 Hct 38.0 % (35.3-44.9) 01/28/18 05:14 Total Bilirubin 2.1 mg/dL (0.3-1.0) H 01/28/18 05:14 AST 104 Units/L (13-39) H 01/28/18 05:14 ALT 84 Units/L (7-52) H 01/28/18 05:14 Lipase 32 Units/L (11-82) 01/27/18 15:42 - ABG ABG results: PT/INR, D-dimer D-Dimer 394 ng/mLFEU (0-500) 01/27/18 15:42 - Impressions Impressions Chest X-Ray 01/27/18 15:37 IMPRESSION: No acute cardiopulmonary process. D/ / 01/27/2018 16:45:56 Juni Simmons MD / [facility] Interpreting Provider: Juni Simmons MD Abdomen/Pelvis CTA 01/27/18 16:31 IMPRESSION: No evidence of thoracic or abdominal aortic dissection or aneurysm. Although not well evaluated, no central pulmonary embolism is detected. Hepatomegaly, with a mottled appearance of the hepatic parenchyma, possibly secondary to contrast phase, but hepatic congestion would also be considered. Correlate with clinical evidence of hepatocellular disease. Gallbladder distention with pericholecystic edema. That is a nonspecific finding, but correlate with clinical evidence of acute cholecystitis. Small amount of free pelvic fluid, presumably physiologic. Prominent left parauterine venous plexus. Correlate with any clinical evidence of pelvic congestion syndrome. Indeterminate, circumscribed low-density lesion within the right costophrenic angle, measuring 1.9 cm. Given the patient's age, and assuming there is no history of neoplasm, this is probably a benign finding such as a hamartoma, or possibly a loculated mildly complex pleural fluid collection. Consider follow-up in 1 year to ensure stability. D/ / Shon Coffey MD / Shon Coffey MD Interpreting Provider: Shon Coffey MD Chest CTA 01/27/18 16:31 IMPRESSION: No evidence of thoracic or abdominal aortic dissection or aneurysm. Although not well evaluated, no central pulmonary embolism is detected. Hepatomegaly, with a mottled appearance of the hepatic parenchyma, possibly secondary to contrast phase, but hepatic congestion would also be considered. Correlate with clinical evidence of hepatocellular disease. Gallbladder distention with pericholecystic edema. That is a nonspecific finding, but correlate with clinical evidence of acute cholecystitis. Small amount of free pelvic fluid, presumably physiologic. Prominent left parauterine venous plexus. Correlate with any clinical evidence of pelvic congestion syndrome. Indeterminate, circumscribed low-density lesion within the right costophrenic angle, measuring 1.9 cm. Given the patient's age, and assuming there is no history of neoplasm, this is probably a benign finding such as a hamartoma, or possibly a loculated mildly complex pleural fluid collection. Consider follow-up in 1 year to ensure stability. D/ / Shon Coffey MD / Shon Coffey MD Interpreting Provider: Shon Coffey MD Gallbladder Ultrasound 01/27/18 17:53 IMPRESSION: Sludge versus tiny stones within the lumen of the gallbladder. No evidence of acute cholecystitis. D/ / Fernie Lunsford MD / Fernie Lunsford MD Interpreting Provider: Fernie Lunsford MD Echocardiogram 01/28/18 08:00 Impressions: LVEF 60-65%. Normal LV chamber size, wall thickness and function. Normal left ventricular diastolic function. Normal right ventricular structure and function. Mild mitral regurgitation. No evidence of pulmonary hypertension. Left Ventricular Wall Motion: Rest Echo Findings All wall segments showed normal motion. Findings: Study Quality * Technically adequate exam. ECG Findings * Sinus bradycardia. Left Ventricle * LVEF 60-65%. * Normal LV chamber size, wall thickness and function. * Normal left ventricular diastolic function. Right Ventricle * Normal right ventricular structure and function. Left Atrium * Normal left atrial size. Right Atrium * Normal right atrial size. Aortic Valve * Trileaflet aortic valve with normal function. * No aortic regurgitation. * No aortic stenosis. Mitral Valve * Normal mitral valve structure. * Mild mitral regurgitation. * No mitral stenosis. Tricuspid Valve * Normal tricuspid valve structure and function. * Trace tricuspid regurgitation. * No evidence of pulmonary hypertension. Pulmonic Valve * Normal pulmonic valve structure and function. * No pulmonic regurgitation. Aorta * Normally sized aortic root. Pericardium * The pericardium appears normal. IVC * Normal IVC dimensions and inspiratory collapse. Pulmonary Artery * Normal visualized portions of the main pulmonary artery. Consult Discharge Plan - Plan Referrals: NONE,PCP [Primary Care Provider] - <Sahara Reddy - Last Filed: 01/28/18 22:34> Date of Encounter: 01/28/18 Time of Encounter: 18:00 - Time Spent With Patient Total time spent is greater than 50% in coordination of care (as documented) at patient's floor/unit and/or counseling patient: GI History of Present Illness - Data of Consult Requesting Physician: Alejandro Liu - Consult Narrative History of present illness: Ms. Merritt is a 27 year old female - Constitutional Vitals: Temp Pulse Resp BP Pulse Ox 98.4 F 54 14 122/73 95 01/28/18 19:14 01/28/18 19:14 01/28/18 19:14 01/28/18 19:14 01/28/18 19:14 Results - Labs CBC & Chem 7: 01/28/18 05:14 01/28/18 05:14 Labs: Last Result ESR 15 mm/hr (0-15) 01/27/18 15:42 Calcium 8.6 mg/dL (8.6-10.3) 01/28/18 05:14 Troponin I 0.03 ng/mL (< 0.04) 01/28/18 05:14 C-Reactive Protein 6 mg/L (Less than 10) 01/27/18 15:42 Urine Opiates Screen Negative ng/mL (Srkzbr=288) 01/27/18 15:45 Entire Visit Hgb 12.5 g/dL (11.5-15.4) 01/28/18 05:14 Hct 38.0 % (35.3-44.9) 01/28/18 05:14 Total Bilirubin 2.1 mg/dL (0.3-1.0) H 01/28/18 05:14 AST 104 Units/L (13-39) H 01/28/18 05:14 ALT 84 Units/L (7-52) H 01/28/18 05:14 Lipase 32 Units/L (11-82) 01/27/18 15:42 - ABG ABG results: PT/INR, D-dimer D-Dimer 394 ng/mLFEU (0-500) 01/27/18 15:42 - Impressions Impressions Chest X-Ray 01/27/18 15:37 IMPRESSION: No acute cardiopulmonary process. D/ / 01/27/2018 16:45:56 Juni Simmons MD / [facility] Interpreting Provider: Juni Simmons MD Echocardiogram 01/28/18 08:00 Impressions: LVEF 60-65%. Normal LV chamber size, wall thickness and function. Normal left ventricular diastolic function. Normal right ventricular structure and function. Mild mitral regurgitation. No evidence of pulmonary hypertension. Left Ventricular Wall Motion: Rest Echo Findings All wall segments showed normal motion. Findings: Study Quality * Technically adequate exam. ECG Findings * Sinus bradycardia. Left Ventricle * LVEF 60-65%. * Normal LV chamber size, wall thickness and function. * Normal left ventricular diastolic function. Right Ventricle * Normal right ventricular structure and function. Left Atrium * Normal left atrial size. Right Atrium * Normal right atrial size. Aortic Valve * Trileaflet aortic valve with normal function. * No aortic regurgitation. * No aortic stenosis. Mitral Valve * Normal mitral valve structure. * Mild mitral regurgitation. * No mitral stenosis. Tricuspid Valve * Normal tricuspid valve structure and function. * Trace tricuspid regurgitation. * No evidence of pulmonary hypertension. Pulmonic Valve * Normal pulmonic valve structure and function. * No pulmonic regurgitation. Aorta * Normally sized aortic root. Pericardium * The pericardium appears normal. IVC * Normal IVC dimensions and inspiratory collapse. Pulmonary Artery * Normal visualized portions of the main pulmonary artery. Abdomen MRI 01/28/18 14:44 IMPRESSION: 1. Possible areas of stricturing within the central intrahepatic bile ducts and proximal extrahepatic bile duct, which may relate to primary sclerosing cholangitis. Consider correlation with ERCP. 2. No biliary ductal dilatation or evidence of choledocholithiasis. Unremarkable gallbladder. 3. Liver is enlarged but otherwise appears unremarkable. 4. A 1.5 cm pulmonary nodule in the right lower lobe is likely benign given the patient's age. No follow-up imaging recommended unless clinically indicated. D/ / Bhavin Ignacio MD / Bhavin Ignacio MD Interpreting Provider: Bhavin Ignacio MD - Attending Attestation I have personally performed a face to face evaluation on this patient. I have reviewed and agree with the care plan. History and Exam by me shows: Pt seen Pt admitted with upper abd pain.Sudden in onset. Currently abd benign. A: Mildly abn LFTS with hepatomedaly . MRCP with poss strictures of CHD and Intrahepatics . R/O PSC. Rec; Follow LFTS. IgG 4. RODRI, Currently no acute indication for ERCP. MRCP/labs are nonspecif. will need to be watched closely as out pt.
--- NOTE | 2018-01-28 12:23 | Internal Med Progress Note ---
Hospitalist Progress Note - Encounter Date of Encounter: 01/28/18 Time of Encounter: 12:19 - Subjective Interval History: Patient seen and examined at bedside. She is continuing to report right upper quadrant pain as well as left-sided chest pain 2/10. She denies any nausea or vomiting. Discussed plan of care including surgical consultation. Patient denies any further questions at this time. No additional complaints. - Exam Vitals: Temp Pulse Resp BP Pulse Ox 98.1 F 60 18 115/75 98 01/28/18 11:35 01/28/18 11:35 01/28/18 11:35 01/28/18 11:35 01/28/18 11:35 Exam: General: Alert and oriented. Skin:Normal color, no rash, no lesions. HEENT:Pupils equal, round and reactive., Nonicteric Cardiovascular:Normal S1 & S2, no rubs, murmurs or gallops. No JVD. Pulse regular. Lungs:Normal breath sounds, no wheezes or crackles. Abdomen:Soft, and without rigidity, right upper quadrant tenderness to palpation Extremities:No deformity, no edema or tenderness, no joint swelling or clubbing. Neurological:Normal cognition and motor skills. Pulses:Carotid and radial pulses normal +2. Skin: She is without jaundice Rest of the physical exam is non contributory. - Assessment and Plan (1) Chest pain Current Visit: Yes Status: Acute Assessment and Plan: Cardiology consulted by ER. Initial troponin elevated 0.07, serial troponins ordered per cardiology recommendation. Continuous environmental monitoring specialist. Echocardiogram ordered per cardiology recommendation. NPO. 01/28--, left-sided chest pain persists today, describes it as 2/10 and reports it is waxing and waning. Serial troponins obtained and found to be descending, 0.07, 0.05, 0.03. No events noted on telemetry overnight. Echocardiogram grossly normal with the exception of some mild MR. EKG without any ischemic changes. I do not suspect that patient's chest pain is cardiac etiology. (2) Abdominal pain Current Visit: Yes Status: Acute Assessment and Plan: Concerns for cholecystitis Patient presenting with left-sided chest pain, epigastric pain with radiation to right upper quadrant. Additionally endorsing one-time episode of bilious vomiting She describes biliary colic-like pain with acute onset. She reports that the pain abruptly improved in severity but is still persistent CT of the abdomen and pelvis revealing gallbladder distention with pericholecystic edema and CBD dilatation measuring 6.5 mm. However this was not evident on GB US Of note she has transaminitis with AST of 104 and ALT of 84, additionally, her total bilirubin is 2.1 With her presentation this is consistent for acute cholecystitis I have consulted Dr. Jackson for further recommendations and evaluation. Thank you, I appreciate your consultation. GI following Urine drug screen. Repeat labs in a.m. Obtain MRCP now Hepatitis panel results and is negative for hepatitis Continue to treat pain as needed (3) Pulmonary lesion Current Visit: Yes Status: Acute Assessment and Plan: Incidental finding on Chest CT, one year outpatient follow up recommended per radiology. Patient has been made aware of need for follow-up. Low risk for neoplasm and a healthy-appearing nonsmoking patient without any constitutional symptoms (4) Hepatomegaly Current Visit: Yes Status: Acute Assessment and Plan: as above (5) Elevated troponin Current Visit: Yes Status: Acute Assessment and Plan: Serial troponins are descending, 0.07, 0.05, 0.03 Continue to have left-sided chest pain 04/12 however I do not believe that this is ACS or pain secondary to cardiac etiology. (6) Free fluid in pelvis Current Visit: Yes Status: Acute Assessment and Plan: most likely benign cause Incidental finding on CT of Abdomen/Pelvis, currently without pelvic pain, continue to monitor for pelvic pain or new signs/symptoms. DVT Prophylaxis: SC heparin - Time Spent with Patient Total time spent is greater than 50% in coordination of care (as documented) at patient's floor/unit and/or counseling patient: less than 15 minutes Plan of Care Discussed with: patient Internal Medicine: Result - Labs CBC & Chem 7: 01/28/18 05:14 01/28/18 05:14 Labs: Short CBC 01/27/18 01/28/18 Range/Units 15:42 05:14 WBC 10.0 6.6 (4.3-11.1) K/mcL Hgb 13.9 12.5 (11.5-15.4) g/dL Hct 42.8 38.0 (35.3-44.9) % Plt Count 281 263 (140-400) K/mcL Neutrophils # 7.9 4.0 (1.6-8.9) K/mcL BMP 01/27/18 01/28/18 15:42 05:14 Sodium 138 139 Potassium 3.9 3.7 Chloride 103 107 Carbon Dioxide 28 26 BUN 10 7 Creatinine 0.64 0.61 Glucose 102 91 Calcium 9.2 8.6 Cardiac Enzymes 01/27/18 01/27/18 01/28/18 Range/Units 15:42 23:45 05:14 Troponin I 0.07 H* 0.05 H* 0.03 (< 0.04) ng/mL Liver Function 01/27/18 01/28/18 Range/Units 15:42 05:14 Total Bilirubin 1.1 H 2.1 H (0.3-1.0) mg/dL Direct Bilirubin 0.7 H (0.0-0.2) mg/dL AST 57 H 104 H (13-39) Units/L ALT 35 84 H (7-52) Units/L Alkaline Phosphatase 54 69 (34-104) Units/L Albumin 4.2 3.7 (3.5-5.7) g/dL Urine 01/27/18 Range/Units 15:45 Urine Color Dark Yellow (Yellow) Urine Clarity Cloudy A (Clear) Urine pH 8.0 (5.0-8.0) pH Units Ur Specific [place] 1.020 (1.010-1.025) Urine Protein 30 H (Neg-Trace) mg/dL Urine Glucose (UA) Normal (Normal) mg/dL - ABG Interpretation ABG results: PT/INR, D-dimer D-Dimer 394 ng/mLFEU (0-500) 01/27/18 15:42 - Impressions Impressions Chest X-Ray 01/27/18 15:37 IMPRESSION: No acute cardiopulmonary process. D/ / 01/27/2018 16:45:56 Juni Simmons MD / [facility] Interpreting Provider: Juni Simmons MD Abdomen/Pelvis CTA 01/27/18 16:31 IMPRESSION: No evidence of thoracic or abdominal aortic dissection or aneurysm. Although not well evaluated, no central pulmonary embolism is detected. Hepatomegaly, with a mottled appearance of the hepatic parenchyma, possibly secondary to contrast phase, but hepatic congestion would also be considered. Correlate with clinical evidence of hepatocellular disease. Gallbladder distention with pericholecystic edema. That is a nonspecific finding, but correlate with clinical evidence of acute cholecystitis. Small amount of free pelvic fluid, presumably physiologic. Prominent left parauterine venous plexus. Correlate with any clinical evidence of pelvic congestion syndrome. Indeterminate, circumscribed low-density lesion within the right costophrenic angle, measuring 1.9 cm. Given the patient's age, and assuming there is no history of neoplasm, this is probably a benign finding such as a hamartoma, or possibly a loculated mildly complex pleural fluid collection. Consider follow-up in 1 year to ensure stability. D/ / Shon Coffey MD / Shon Coffey MD Interpreting Provider: Shon Coffey MD Chest CTA 01/27/18 16:31 IMPRESSION: No evidence of thoracic or abdominal aortic dissection or aneurysm. Although not well evaluated, no central pulmonary embolism is detected. Hepatomegaly, with a mottled appearance of the hepatic parenchyma, possibly secondary to contrast phase, but hepatic congestion would also be considered. Correlate with clinical evidence of hepatocellular disease. Gallbladder distention with pericholecystic edema. That is a nonspecific finding, but correlate with clinical evidence of acute cholecystitis. Small amount of free pelvic fluid, presumably physiologic. Prominent left parauterine venous plexus. Correlate with any clinical evidence of pelvic congestion syndrome. Indeterminate, circumscribed low-density lesion within the right costophrenic angle, measuring 1.9 cm. Given the patient's age, and assuming there is no history of neoplasm, this is probably a benign finding such as a hamartoma, or possibly a loculated mildly complex pleural fluid collection. Consider follow-up in 1 year to ensure stability. D/ / Shon Coffey MD / Shon Coffey MD Interpreting Provider: Shon Coffey MD Gallbladder Ultrasound 01/27/18 17:53 IMPRESSION: Sludge versus tiny stones within the lumen of the gallbladder. No evidence of acute cholecystitis. D/ / Fernie Lunsford MD / Fernie Lunsford MD Interpreting Provider: Fernie Lunsford MD Echocardiogram 01/28/18 08:00 Impressions: LVEF 60-65%. Normal LV chamber size, wall thickness and function. Normal left ventricular diastolic function. Normal right ventricular structure and function. Mild mitral regurgitation. No evidence of pulmonary hypertension. Left Ventricular Wall Motion: Rest Echo Findings All wall segments showed normal motion. Findings: Study Quality * Technically adequate exam. ECG Findings * Sinus bradycardia. Left Ventricle * LVEF 60-65%. * Normal LV chamber size, wall thickness and function. * Normal left ventricular diastolic function. Right Ventricle * Normal right ventricular structure and function. Left Atrium * Normal left atrial size. Right Atrium * Normal right atrial size. Aortic Valve * Trileaflet aortic valve with normal function. * No aortic regurgitation. * No aortic stenosis. Mitral Valve * Normal mitral valve structure. * Mild mitral regurgitation. * No mitral stenosis. Tricuspid Valve * Normal tricuspid valve structure and function. * Trace tricuspid regurgitation. * No evidence of pulmonary hypertension. Pulmonic Valve * Normal pulmonic valve structure and function. * No pulmonic regurgitation. Aorta * Normally sized aortic root. Pericardium * The pericardium appears normal. IVC * Normal IVC dimensions and inspiratory collapse. Pulmonary Artery * Normal visualized portions of the main pulmonary artery. Consult Discharge Plan - Plan Referrals: NONE,PCP [Primary Care Provider] - __ (1) Chest pain Qualifiers: Chest pain type: unspecified Qualified Code(s): R07.9 - Chest pain, unspecified (2) Abdominal pain Qualifiers: Abdominal location: left upper quadrant Qualified Code(s): R10.12 - Left upper quadrant pain
[2018-01-28 12:47] LABS: Hepatitis A Antibody IgM Nonreactive (Nonreactive); Hepatitis B Core IgM Nonreactive (Nonreactive); Hepatitis B Surface Antigen Nonreactive (Nonreactive); Hepatitis C Virus Antibody Nonreactive (Nonreactive)
[2018-01-28 12:49] LABS: Bilirubin,Urine Moderate (Negative); Blood,Urine Negative (Negative); Clarity,Urine Clear (Clear); Color,Urine Orange (Yellow); Glucose,Urine (UA) Normal (Normal); Ketones,Urine Trace mg/dL (Negative); Leukocyte Esterase,Urine Small (Negative); Nitrite,Urine Positive (Negative); PH,Urine 5.5 pH Units (5.0-8.0); Protein,Urine 30 mg/dL (Neg-Trace); Specific Gravity,Urine 1.027 (1.010-1.025); Urobilinogen,Urine Normal (Normal)
[2018-01-28 12:57] LABS: Mucus,Urine Few (Few); Squamous Epithelial Cell,Urine Few per lpf (None-Few)
[2018-01-28 12:58] LABS: Bacteria,Urine Few per hpf (None-Few); RBC,Urine 0-3 per hpf (0-3); WBC,Urine 0-3 per hpf (0-3)
--- NOTE | 2018-01-28 14:16 | Electrocardiograph Report ---
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
--- NOTE | 2018-01-28 14:17 | Electrocardiograph Report ---
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
--- NOTE | 2018-01-28 14:20 | Electrocardiograph Report ---
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
--- NOTE | 2018-01-28 16:50 | General Surgery Consult Note ---
Date of Encounter: 01/28/18 Time of Encounter: 15:45 History of Present Illness Consult date: 01/28/18 Requesting physician: Alejandro Liu History of present illness: 27-year-old female referred for further evaluation and treatment of abrupt onset epigastric abdominal pain radiating to the left chest. The pain ultimately migrated to the right upper quadrant. Symptoms were accompanied by nausea single episode of vomiting producing a small volume of green gastric fluid. The patient describes "waves of pain" suggestive of biliary colic. The symptoms have subsided in severity but persist. Because of the left sided chest pain and elevated troponins a CTA chest was ordered. This demonstrated no significant intrathoracic pathology. The thoracic aorta, great vessels were all normal. No evidence of a aortic dissection was identified. There was incidental notation of a mottled appearance of the hepatic parenchyma following contrast administration. The gallbladder was distended with evidence of possible gallbladder wall thickening and pericholecystic edema. The common bile duct was measured at 6.5 mm and considered borderline dilated. Subsequent sonogram of the gallbladder suggested the presence of 1 or 2 tiny stones versus trace sludge in the gallbladder lumen. There was no mucosal thickening or pericholecystic fluid. I reviewed the CTA and USGB with [facility]. The described one or 2 tiny stones versus trace sludge was reviewed closely. These appeared to be more linear densities rather than true gallstones. CBC is unremarkable and within normal limits. Electrolytes, BUN/creatinine are also within normal limits. Abdomen has risen to 2.1 (previously 1.1); AST has increased to 104 (previously 57); ALT has increased to 84 (previously 35. Alkaline phosphatase remaining within normal limits, currently 69. Lipase has not been elevated. Troponins on presentation 0.05 but they have returned to normal, currently 0.03. Past medical history: Migraines, IBS Surgical history: None Allergies: Shellfish with exposure causing a rash. The patient tolerated IV contrast during the CTA. Medications: Multivitamin 1 by mouth daily August L1.5 milligrams/30 g per tablet 1 by mouth daily Social history: Patient is G2, P2; she does not smoke, consumes alcohol approximately once yearly; she does not consume any marijuana or illicit drugs Family history: Parents with gallbladder disease Physical examination: Thin, age-appropriate patient resting comfortably in her hospital bed. The patient has been afebrile, currently 98.1, hemodynamically stable with pulse 53, respirations 17, blood pressure 121/71. SPO2 on room air 98-100% Skin: Warm, not obviously icteric Lungs: Clear bilaterally. No obvious abdominal pain on deep inspiration Cardiac: Regular rate without appreciable murmurs Abdomen: Soft, nontender. No obvious hepatosplenomegaly, intra-abdominal masses or fullness. No peritoneal signs or rebound. Bowel sounds were hypoactive. Impression: 27-year-old female, admitted for further evaluation and treatment of abrupt onset epigastric abdominal pain initially radiating to the left chest. Due to the symptoms and elevated troponins, as CTA of the chest abdomen and pelvis were completed. Significant findings included a mottled appearance of the hepatic parenchyma, distended gallbladder with possible gallbladder wall thickening and pericholecystic edema. All bladder abnormalities were not confirmed sonographically, however, there are potential "tiny stones" versus sludge in the gallbladder lumen. Recommendations: Await [facility] assessment Hepatitis panel pending and will be reviewed when available Consider MRI of the liver, hepatobiliary tree. I will follow along with you. Thank you for this consultation. Past Med Surg Social Fam HX - Past Medical History Medical history: migraine, other Additional medical history: IBS Psychiatric history: no psych history - Social History Smoking Status: Never smoker Smokeless Tobacco Status: No Alcohol use: rarely Drug use: none Medications and Allergies Multivitamin [Multivitamins] 1 tab PO DAILY 01/27/18 [History] Norethindrone AC-Eth Estradiol [Junel 1.5 mg-30 Mcg Tablet] 1 tab PO DAILY 01/27/18 [History] Allergy/AdvReac Type Severity Reaction Status Date / Time shellfish derived Allergy Rash Verified 01/27/18 15:34 Review of Systems All systems PM: The remainder of the systems were reviewed and are negative General Surgery Exam Initial Vital Signs Temp Pulse Resp BP Pulse Ox 98.6 F 76 20 140/82 100 01/27/18 15:23 01/27/18 15:23 01/27/18 15:23 01/27/18 15:23 01/27/18 15:23 Exam Initial Vital Signs Temp Pulse Resp BP Pulse Ox 98.6 F 76 20 140/82 100 01/27/18 15:23 01/27/18 15:23 01/27/18 15:23 01/27/18 15:23 01/27/18 15:23 Results - Labs 01/28/18 05:14 01/28/18 05:14 Abnormal lab results Total Bilirubin 2.1 mg/dL (0.3-1.0) H 01/28/18 05:14 Direct Bilirubin 0.7 mg/dL (0.0-0.2) H 01/28/18 05:14 Indirect Bilirubin 1.4 mg/dL (0.0-1.2) H 01/28/18 05:14 AST 104 Units/L (13-39) H 01/28/18 05:14 ALT 84 Units/L (7-52) H 01/28/18 05:14 Urine Color [place] (Yellow) A 01/28/18 09:50 Ur Specific [place] 1.027 (1.010-1.025) H 01/28/18 09:50 Urine Protein 30 mg/dL (Neg-Trace) H 01/28/18 09:50 Urine Ketones Trace mg/dL (Negative) H 01/28/18 09:50 Urine Nitrite Positive (Negative) A 01/28/18 09:50 Urine Bilirubin Moderate (Negative) H 01/28/18 09:50 Ur Leukocyte Esterase Small (Negative) H 01/28/18 09:50 Ur Culture Indicated? YES (NO) A 01/28/18 09:50 Diabetes panel 01/28/18 Range/Units 05:14 Sodium 139 (136-145) mEq/L Potassium 3.7 (3.5-5.1) mEq/L Chloride 107 (98-107) mEq/L Carbon Dioxide 26 (23-29) mEq/L BUN 7 (6-20) mg/dL Creatinine 0.61 (0.60-1.20) mg/dL Glucose 91 (70-105) mg/dL Calcium 8.6 (8.6-10.3) mg/dL AST 104 H (13-39) Units/L ALT 84 H (7-52) Units/L Alkaline Phosphatase 69 (34-104) Units/L Albumin 3.7 (3.5-5.7) g/dL Calcium panel 01/28/18 Range/Units 05:14 Calcium 8.6 (8.6-10.3) mg/dL Albumin 3.7 (3.5-5.7) g/dL Pituitary panel 01/28/18 Range/Units 05:14 Sodium 139 (136-145) mEq/L Potassium 3.7 (3.5-5.1) mEq/L Chloride 107 (98-107) mEq/L Carbon Dioxide 26 (23-29) mEq/L BUN 7 (6-20) mg/dL Creatinine 0.61 (0.60-1.20) mg/dL Glucose 91 (70-105) mg/dL Calcium 8.6 (8.6-10.3) mg/dL Adrenal panel 01/28/18 Range/Units 05:14 Sodium 139 (136-145) mEq/L Potassium 3.7 (3.5-5.1) mEq/L Chloride 107 (98-107) mEq/L Carbon Dioxide 26 (23-29) mEq/L BUN 7 (6-20) mg/dL Creatinine 0.61 (0.60-1.20) mg/dL Glucose 91 (70-105) mg/dL Calcium 8.6 (8.6-10.3) mg/dL Total Bilirubin 2.1 H (0.3-1.0) mg/dL AST 104 H (13-39) Units/L ALT 84 H (7-52) Units/L Alkaline Phosphatase 69 (34-104) Units/L Albumin 3.7 (3.5-5.7) g/dL All other labs normal. Consult Discharge Plan - Plan Referrals: NONE,PCP [Primary Care Provider] -
[2018-01-28] MEDS: cefTRIAXone 1,000 MG in Water for inj. (sterile) 20 ML 10 ML IVP SCH (17:48)
[2018-01-29] MEDS: *HR* Heparin 5,000 UNIT/ML VIAL SQ SCH ×2 (04:22→17:46)
[2018-01-29 04:45] LABS: Albumin 3.5 g/dL (3.5-5.7); Albumin/Globulin Ratio 1.3 (1.1-2.2); Bilirubin,Direct 0.2 mg/dL (0.0-0.2); Bilirubin,Indirect 0.6 mg/dL (0.0-1.2); Bilirubin,Total 0.8 mg/dL (0.3-1.0); Globulin 2.7 g/dL (2.4-3.5); Total Protein 6.2 g/dL (6.4-8.9)
[2018-01-29] MEDS: Multivit/Ca/Min/Fe/FA 1 TAB TABLET PO SCH (09:01)
[2018-01-29] MEDS: cefTRIAXone 1,000 MG in Water for inj. (sterile) 20 ML 10 ML IVP SCH (09:01)
[2018-01-29] MEDS: JUNEL PO SCH (09:15)
--- NOTE | 2018-01-29 11:04 | Gastroenterology Progress Note ---
<Patel Irizarry - Last Filed: 01/29/18 11:01> Date of Encounter: 01/29/18 Time of Encounter: 09:30 - Assessment and plan (1) Elevated LFTs Current Visit: Yes Status: Acute Assessment and plan: On admission TB 1.1, AST 57, ALT 35. Today TB 0.8 with indirect bili 0.6 AST 47, ALT 66. Pt appears to be improving c linically RUQ US showed sludge vs stones in gallbladder, no cholecystitis. Abdominal MRI reports strictures in the extrahepatic and intrahepatic ducts possible indicating PSC Pt has family hx of AI dz. Mother has psoriatic arthritis and grandmother had Lupus. Pt denies any joint pain or rashes. Hepatitis Profile negative Plan: Continue to monitor hepatic panel daily. Order IgG4 and RODRI to r/o AI dz - Time Spent With Patient Total time spent is greater than 50% in coordination of care (as documented) at patient's floor/unit and/or counseling patient: less than 15 minutes - Subjective Interval history: Pt is a pleasant 27 y/o F seen and evaluated at bedside. Pt reports improvement in her RUQ abdominal pain although she still has some nausea. Pt has no additional complaints. - Constitutional Vitals: Temp Pulse Resp BP Pulse Ox 97.9 F 55 19 102/65 97 01/29/18 07:23 01/29/18 07:23 01/29/18 07:23 01/29/18 07:23 01/29/18 09:09 General appearance: Present: cooperative, A&O X 3, no acute distress, answers questions appropriately - Head Head exam: Present: normal inspection, normocephalic - Eye Eye exam: Present: normal appearance - Neck Neck exam general surgery: Present: normal inspection - Respiratory Respiratory exam: Present: CTAB. Absent: rales, rhonchi, wheezes - Cardiovascular Cardiovascular exam: Present: RRR. Absent: diastolic murmur, gallop, rubs, systolic murmur - GI/Abdominal GI/Abdominal exam: Present: normal bowel sounds, soft, tenderness. Absent: distended, mass - Neurological Exam Neurological exam: Present: alert, oriented X3, no focal deficits - Psychiatric Psychiatric exam: Present: normal mood - Skin Skin exam: Present: dry, intact Results - Labs CBC & Chem 7: 01/28/18 05:14 01/28/18 05:14 Labs: Last Result ESR 15 mm/hr (0-15) 01/27/18 15:42 Calcium 8.6 mg/dL (8.6-10.3) 01/28/18 05:14 Troponin I 0.03 ng/mL (< 0.04) 01/28/18 05:14 C-Reactive Protein 6 mg/L (Less than 10) 01/27/18 15:42 Urine Opiates Screen Negative ng/mL (Qrjeuy=298) 01/27/18 15:45 Entire Visit Hgb 12.5 g/dL (11.5-15.4) 01/28/18 05:14 Hct 38.0 % (35.3-44.9) 01/28/18 05:14 Total Bilirubin 0.8 mg/dL (0.3-1.0) 01/29/18 03:44 AST 47 Units/L (13-39) H 01/29/18 03:44 ALT 66 Units/L (7-52) H 01/29/18 03:44 Lipase 32 Units/L (11-82) 01/27/18 15:42 - ABG ABG results: PT/INR, D-dimer D-Dimer 394 ng/mLFEU (0-500) 01/27/18 15:42 - Impressions Impressions Chest X-Ray 01/27/18 15:37 IMPRESSION: No acute cardiopulmonary process. D/ / 01/27/2018 16:45:56 Juni Simmons MD / laurita Interpreting Provider: Juni Simmons MD Abdomen MRI 01/28/18 14:44 IMPRESSION: 1. Possible areas of stricturing within the central intrahepatic bile ducts and proximal extrahepatic bile duct, which may relate to primary sclerosing cholangitis. Consider correlation with ERCP. 2. No biliary ductal dilatation or evidence of choledocholithiasis. Unremarkable gallbladder. 3. Liver is enlarged but otherwise appears unremarkable. 4. A 1.5 cm pulmonary nodule in the right lower lobe is likely benign given the patient's age. No follow-up imaging recommended unless clinically indicated. D/ / Bhavin Ignacio MD / Bhavin Ignacio MD Interpreting Provider: Bhavin Ignacio MD Consult Discharge Plan - Plan Referrals: NONE,PCP [Primary Care Provider] - <Sahara Reddy - Last Filed: 01/29/18 22:56> Date of Encounter: 01/29/18 Time of Encounter: 19:00 - Time Spent With Patient Total time spent is greater than 50% in coordination of care (as documented) at patient's floor/unit and/or counseling patient: - Constitutional Vitals: Temp Pulse Resp BP Pulse Ox 98.0 F 66 14 113/74 98 01/29/18 19:26 01/29/18 19:26 01/29/18 19:26 01/29/18 19:26 01/29/18 19:26 Results - Labs CBC & Chem 7: 01/28/18 05:14 01/28/18 05:14 Labs: Last Result ESR 15 mm/hr (0-15) 01/27/18 15:42 Calcium 8.6 mg/dL (8.6-10.3) 01/28/18 05:14 Troponin I 0.03 ng/mL (< 0.04) 01/28/18 05:14 C-Reactive Protein 6 mg/L (Less than 10) 01/27/18 15:42 Urine Opiates Screen Negative ng/mL (Axmpvy=637) 01/27/18 15:45 Entire Visit Hgb 12.5 g/dL (11.5-15.4) 01/28/18 05:14 Hct 38.0 % (35.3-44.9) 01/28/18 05:14 Total Bilirubin 0.8 mg/dL (0.3-1.0) 01/29/18 03:44 AST 47 Units/L (13-39) H 01/29/18 03:44 ALT 66 Units/L (7-52) H 01/29/18 03:44 Lipase 32 Units/L (11-82) 01/27/18 15:42 - ABG ABG results: PT/INR, D-dimer D-Dimer 394 ng/mLFEU (0-500) 01/27/18 15:42 - Attending Attestation I examined this patient and my medical decision-making was reviewed withmed student Spencer Jauregui. I agree with the documented findings, disposition and treatment plan as described except to the extent set forth below. Pt and pain improved. LFTS improved. Does ahs some Hx of lose stool. Rec: Follow LFTS out pt. Doubt PSC as no cholestasis. Poss colon out pt to r/o UC and repeat MRI 6-8 weeks
--- NOTE | 2018-01-29 11:49 | Internal Med Progress Note ---
Hospitalist Progress Note - Encounter Date of Encounter: 01/29/18 Time of Encounter: 11:46 - Subjective Interval History: Patient seen and examined at bedside. RUQ pain improving. Denies any chest pain. Continues to endorse nausea but is not having any vomiting. - Exam Vitals: Temp Pulse Resp BP Pulse Ox 97.9 F 56 17 115/73 99 01/29/18 11:18 01/29/18 11:18 01/29/18 11:18 01/29/18 11:18 01/29/18 11:18 Exam: General: Alert and oriented. Skin:Normal color, no rash, no lesions. HEENT:Pupils equal, round and reactive., Nonicteric Cardiovascular:Normal S1 & S2, no rubs, murmurs or gallops. No JVD. Pulse regular. Lungs: CTA AP and L Abdomen:Soft, and without rigidity, right upper quadrant tenderness to palpation Extremities:No deformity, no edema or tenderness, no joint swelling or clubbing. Neurological:Normal cognition and motor skills. Pulses:Carotid and radial pulses normal +2. Skin: She is without jaundice Rest of the physical exam is non contributory. - Assessment and Plan (1) Chest pain Current Visit: Yes Status: Resolved Assessment and Plan: Cardiology consulted by ER. Initial troponin elevated 0.07, serial troponins ordered per cardiology recommendation. Continuous awake overnight monitor. Echocardiogram ordered per cardiology recommendation. NPO. 01/28--, left-sided chest pain persists today, describes it as 2/10 and reports it is waxing and waning. Serial troponins obtained and found to be descending, 0.07, 0.05, 0.03. No events noted on telemetry overnight. Echocardiogram grossly normal with the exception of some mild MR. EKG without any ischemic changes. I do not suspect that patient's chest pain is cardiac etiology. 09/28--chest pain is resolved. I do not believe this is cardiac in origin and most likely GI related. (2) Abdominal pain Current Visit: Yes Status: Acute Assessment and Plan: Concerns for cholecystitis Patient presenting with left-sided chest pain, epigastric pain with radiation to right upper quadrant. Additionally endorsing one-time episode of bilious vomiting She describes biliary colic-like pain with acute onset. She reports that the pain abruptly improved in severity but is still persistent CT of the abdomen and pelvis revealing gallbladder distention with pericholecystic edema and CBD dilatation measuring 6.5 mm. additional findings of hepatomegaly. However this was not evident on GB US transaminitis with AST of 104 and ALT of 84, additionally, her total bilirubin is 2.1 With her presentation this is consistent for acute cholecystitis I have consulted Dr. Jackson for further recommendations and evaluation. Thank you, I appreciate your consultation. GI following Urine drug screen. Repeat labs in a.m. Obtain MRCP now Hepatitis panel results and is negative for hepatitis Continue to treat pain as needed 01/29--abdominal pain is persistent but improving. GB US revealing sludge versus small stones and gallbladder however patient does not have cholecystitis. MRCP revealing strictures of the extrahepatic and posterior hepatic ducts with concerns for PSC. Strong familial history for AI dz. hepatitis panel negative, AST/47 and ALT/66 improving, LFTs also improving, total bili 0.8, direct bili 0.2, indirect bili 0.6. GI following and ordering IgG4 and RODRI. (3) Pulmonary lesion Current Visit: Yes Status: Acute Assessment and Plan: Incidental finding on Chest CT, one year outpatient follow up recommended per radiology. Patient has been made aware of need for follow-up. Low risk for neoplasm in a healthy-appearing nonsmoking patient without any constitutional sy mptoms. One-year follow-up. Patient aware of pulmonary nodule and aware of need for one-year follow-up. (4) Hepatomegaly Current Visit: Yes Status: Acute Assessment and Plan: as above (5) Elevated troponin Current Visit: Yes Status: Acute Assessment and Plan: Serial troponins are descending, 0.07, 0.05, 0.03 Continue to have left-sided chest pain 04/12 however I do not believe that this is ACS or pain secondary to cardiac etiology. (6) Free fluid in pelvis Current Visit: Yes Status: Acute Assessment and Plan: most likely benign cause Incidental finding on CT of Abdomen/Pelvis, currently without pelvic pain, continue to monitor for pelvic pain or new signs/symptoms. DVT Prophylaxis: SC heparin - Time Spent with Patient Total time spent is greater than 50% in coordination of care (as documented) at patient's floor/unit and/or counseling patient: less than 15 minutes Plan of Care Discussed with: patient Internal Medicine: Result - Labs CBC & Chem 7: 01/28/18 05:14 01/28/18 05:14 Labs: Liver Function 01/29/18 Range/Units 03:44 Total Bilirubin 0.8 (0.3-1.0) mg/dL Direct Bilirubin 0.2 (0.0-0.2) mg/dL AST 47 H (13-39) Units/L ALT 66 H (7-52) Units/L Alkaline Phosphatase 73 (34-104) Units/L Albumin 3.5 (3.5-5.7) g/dL Urine 01/28/18 Range/Units 09:50 Urine Color [place] A (Yellow) Urine Clarity Clear (Clear) Urine pH 5.5 (5.0-8.0) pH Units Ur Specific [place] 1.027 H (1.010-1.025) Urine Protein 30 H (Neg-Trace) mg/dL Urine Glucose (UA) Normal (Normal) mg/dL - ABG Interpretation ABG results: PT/INR, D-dimer D-Dimer 394 ng/mLFEU (0-500) 01/27/18 15:42 - Impressions Impressions Chest X-Ray 01/27/18 15:37 IMPRESSION: No acute cardiopulmonary process. D/ / 01/27/2018 16:45:56 Juni Simmons MD / laurita Interpreting Provider: Juni Simmons MD Abdomen MRI 01/28/18 14:44 IMPRESSION: 1. Possible areas of stricturing within the central intrahepatic bile ducts and proximal extrahepatic bile duct, which may relate to primary sclerosing cholangitis. Consider correlation with ERCP. 2. No biliary ductal dilatation or evidence of choledocholithiasis. Unremarkable gallbladder. 3. Liver is enlarged but otherwise appears unremarkable. 4. A 1.5 cm pulmonary nodule in the right lower lobe is likely benign given the patient's age. No follow-up imaging recommended unless clinically indicated. D/ / Bhavin Ignacio MD / Bhavin Ignacio MD Interpreting Provider: Bhavin Ignacio MD Consult Discharge Plan - Plan Referrals: NONE,PCP [Primary Care Provider] - (1) Chest pain Qualifiers: Chest pain type: unspecified Qualified Code(s): R07.9 - Chest pain, unspecified (2) Abdominal pain Qualifiers: Abdominal location: left upper quadrant Qualified Code(s): R10.12 - Left upper quadrant pain
--- NOTE | 2018-01-29 13:45 | General Surgery Progress Note ---
Date of Encounter: 01/29/18 Time of Encounter: 13:38 Subjective Narrative: General Surgery - Patient indicates that she is feeling "about the same" MR results reviewed with [facility]. It is possible that the described strictures in the biliary ducts may due to movement rather than true strictures. ERCP is recommended to when he ate these findings further. The patient has remained afebrile, currently 97.9; hemodynamically stable with pulse 56, respirations 17, BP 102/65 - 115/73. Lungs: Clear Abdomen: Soft, with minimal right upper quadrant tenderness Labs: Bilirubin has returned to normal at 0.8, AST has improved to 47, ALT improved to 66. Alkaline phosphatase has remained within normal limits. Impression: MR findings suggestive of either biliary strictures or ascending cholangitis The abrupt onset of symptoms, and they are rather rapid resolution is more consistent with biliary colic even though ultrasound gallbladder is equivocal for the presence of gallstones. Plan: I will continue to follow with you Awaiting ERCP results. Objective Vital Signs - Last 8 Hours Temp Pulse Resp BP Pulse Ox 01/29/18 11:18 97.9 F 56 17 115/73 99 01/29/18 09:09 97 01/29/18 07:23 97.9 F 55 19 102/65 97 Intake and Output 01/28/18 01/29/18 01/29/18 23:59 07:59 15:59 Intake Total 490 / 490 Output Total 1100 / 1100 Balance -610 / -610 Intake: IV Fluids Rocephin 1,000 MG In Water for inj. (sterile) 10 ML @ 600 mls/ hr IVP DAILY [facility] Rx#:[id number] Oral 480 / 480 Output: Urine 1100 / 1100 Other: Meal Dinner Percent of Meal Consumed 50% Weight 58.6 kg Patient Weight 01/29/18 23:59 Weight 58.6 kg - Labs 01/28/18 05:14 01/28/18 05:14 Diabetes panel 01/29/18 Range/Units 03:44 AST 47 H (13-39) Units/L ALT 66 H (7-52) Units/L Alkaline Phosphatase 73 (34-104) Units/L Albumin 3.5 (3.5-5.7) g/dL Calcium panel 11/29/18 Range/Units 03:44 Albumin 3.5 (3.5-5.7) g/dL Adrenal panel 01/29/18 Range/Units 03:44 Total Bilirubin 0.8 (0.3-1.0) mg/dL AST 47 H (13-39) Units/L ALT 66 H (7-52) Units/L Alkaline Phosphatase 73 (34-104) Units/L Albumin 3.5 (3.5-5.7) g/dL Consult Discharge Plan - Plan Referrals: NONE,PCP [Primary Care Provider] -
[2018-01-30 05:05] LABS: Albumin 4.1 g/dL (3.5-5.7); Albumin/Globulin Ratio 1.2 (1.1-2.2); Bilirubin,Direct 0.2 mg/dL (0.0-0.2); Bilirubin,Indirect 0.6 mg/dL (0.0-1.2); Bilirubin,Total 0.8 mg/dL (0.3-1.0); Globulin 3.3 g/dL (2.4-3.5); Total Protein 7.4 g/dL (6.4-8.9)
[2018-01-30] MEDS: *HR* Heparin 5,000 UNIT/ML VIAL SQ SCH (05:35)
[2018-01-30] MEDS: cefTRIAXone 1,000 MG in Water for inj. (sterile) 20 ML 10 ML IVP SCH (08:55)
[2018-01-30] MEDS: Multivit/Ca/Min/Fe/FA 1 TAB TABLET PO SCH (08:55)
[2018-01-30] MEDS: JUNEL PO SCH (09:03)
[2018-01-30 11:14] VITALS: BP 123/76
--- NOTE | 2018-01-30 11:38 | Discharge Summary ---
- NOTES TO OUTPATIENT PROVIDER Notes to Outpatient Provider: F/U GI in 2 weeks. Will need MRI f/u in 4-6 weeks. To see PCP in 1-week; please repeat LFT's in 2 weeks. F/u with Dr. Jackson in 2 weeks. Antibodies pending at time of D/C. also, incidental findings of pulmonary nodule. In low risk patient suggest repeat CT scan in one year. Date of Encounter: 01/30/18 Time of Encounter: 11:36 - Discharge Diagnosis (1) Chest pain Priority: Primary Status: Resolved Qualifiers: Chest pain type: unspecified Qualified Code(s): R07.9 - Chest pain, unspecified (2) Abdominal pain Priority: Secondary Status: Resolved Qualifiers: Abdominal location: left upper quadrant Qualified Code(s): R10.12 - Left upper quadrant pain (3) Pulmonary lesion Priority: Secondary Status: Acute (4) Hepatomegaly Priority: Secondary Status: Acute (5) Elevated troponin Priority: Secondary Status: Acute (6) Free fluid in pelvis Priority: Secondary Status: Acute Hospital course: Ms. Merritt is a 27 year old female with a PMH significant for IBS and migraine headaches who presented with left-sided sharp squeezing chest pain and LUQ abdominal pain radiating to left neck and through left chest to the left side of back. Also, the patient did note one episode of bilious vomiting and 3 episodes of loose stool as well as diaphoresis. She describes the abdominal pain as "wavelike" which appears to be biliary colic. Workup in the ED revealed elevated troponin so she was admitted for ACS rule out. EKG was without any acute ST-T wave changes concerning for ischemia and serial troponins were negative 3. CT of the abdomen and pelvis revealed gallbladder distention and pericholecystic edema as well as CBD dilatation at 6.5 mm. This was initially concerning for cholecystitis. However these findings not evident on GB US. She was also found to have transaminitis and elevated LFTs. GI and Surgery (Dr. Jackson) were both consulted. A hepatitis panel was sent and found to be negative. MRCP completed finding hepatomegaly and areas of stricturing within the central intrahepatic bile ducts and proximal extrahepatic bile duct with concerns for possible primary sclerosing cholangitis. Gastroenterology recommendations are to obtain IgG4 and RODRI to rule out AI disease. These labs are pending at time of discharge. Additionally, GI does not feel that this is PSC as there is not cholestasis. She is to follow-up with GI in 2 weeks and repeat MRI in 6-8 weeks. She is to also follow-up with Dr. jackson in 2 weeks. Follow up with her PCP at discharge. Is should be noted the patient's transaminase and LFTs return to normal limits. During the workup it was revealed that the patient had free fluid in the pelvis, but this did not appear acute. Additionally, she was found to have a pulmonary lesion. In a low risk patient follow-up CT chest is recommended at 1 year. On the day of discharge the patient is no longer having vomiting or chest pain but was still having some mild nausea. However, she was able to tolerate a regular diet and oral intake. Discharge discussed with: patient, nurse, portrait consultant - Time Spent with Patient Total time spent providing and/or coordinating discharge services: Less than 30 minutes - Discharge Medications Home Medications: Multivitamin [Multivitamins] 1 tab PO DAILY 01/27/18 [History] Norethindrone AC-Eth Estradiol [Junel 1.5 mg-30 Mcg Tablet] 1 tab PO DAILY 01/27/18 [History] Allergies/Adverse Reactions: Allergy/AdvReac Type Severity Reaction Status Date / Time shellfish derived Allergy Rash Verified 01/27/18 15:34 Date of admission: 01/27/18 21:03 Primary care physician: PCP NONE Consults: 01/27/18 18:58 Consult to Cardiology [CONS] Stat Comment: Consulting Provider: Cardiology [place] Reason for Consult: elevated trop chest pain Call Completed: Yes 01/27/18 22:56 Consult to Gastroenterology [CONS] Routine Consulting Provider: Gastroenterology Crista Reason for Consult: New hepatomegaly, elevated bilirubin, elevated AST, with LUQ abdominal pain. Call Completed: No 01/29/18 10:24 Consult to Surgery [CONS] Routine Consulting Provider: Surgery Sandra Surg Lita Jackson Reason for Consult: concerns for cholecystitis Time Notified: 10:25 Call Completed: Yes Discharging clinician: Alejandro Lui Anticipated date of discharge: 01/30/18 - Constitutional Vitals: Temp Pulse Resp BP Pulse Ox 97.7 F 74 16 123/76 98 01/30/18 11:11 01/30/18 11:11 01/30/18 11:11 01/30/18 11:11 01/30/18 11:11 General appearance: Present: A&O X 3 Exam: General: Alert and oriented. Skin:Normal color, no rash, no lesions. HEENT:Pupils equal, round and reactive., Nonicteric Cardiovascular:Normal S1 & S2, no rubs, murmurs or gallops. No JVD. Pulse regular. Lungs: CTA AP and L Abdomen:Soft, and without rigidity, without tenderness Extremities:No deformity, no edema or tenderness, no joint swelling or clubbing. Neurological:Normal cognition and motor skills. Pulses:Carotid and radial pulses normal +2. Skin: She is without jaundice Rest of the physical exam is non contributory. - Patient Status Disposition: Home, Self-Care Condition: Good Functional capacity at discharge: independent ambulation Overall status at discharge: patient is back to baseline - Ambulatory Orders Ambulatory Orders: Hepatic Panel [CHEM] Time Frame: 5 Days, Facility: [facility], Location: Lab - Discharge Instructions Instructions: Chest Pain (DC) Follow Up With: Ai Andino CNP [Partnered Physician] - 02/05/18 1:55 pm () Luisito Jackson MD [Non-Partnered Physician] - 02/13/18 2:10 pm NONE,PCP [Primary Care Provider] - Sahara Reddy MD [Partnered Physician] - (Appointment has been requested. Our offices will contact you with an appointment time and date. ) - Diet and Activity Activity: increase activity as tolerated, resume usual activities as tolerated Diet: advance to your usual diet
== END 2018-01-30 12:22 | disposition home or self-care (01) ==
LOC: 3BNU 15:21 → EMEROOARM 15:21 → SUATTDRO 21:03 → 3BNU 21:38
PROVIDERS: ADMIT Internal Medicine; ATTEND Nurse Practitioner